=== PATIENT | male | born 1975 | race Caucasian/White ===

== ENCOUNTER 2022-07-21 13:45 | Emergency (ER) | payer BC ==
[~2022-07-21] VITALS: Ht 170.2 cm; Wt 73.9 kg
[2022-07-21 13:56] VITALS: BP 112/77
[2022-07-21] MEDS ORDERED: MECLIZINE 25 MG TAB PO ONE (14:30)
[2022-07-21] MEDS ORDERED: MECL-303 PO ×2 (15:04→15:29)
[2022-07-21] MEDS ORDERED: MECLIZINE 25 MG TAB ONE ×2 (15:51→15:52)
[2022-07-21 15:55] VITALS: BP 112/77
--- NOTE | 2022-07-21 15:55 | NUR ---
Patient discharged with v/s stable. Written and verbal after care instructions given and explained. Patient alert, oriented and verbalized understanding of instructions. Ambulatory with FRIEND to car. All questions addressed prior to discharge. ID band removed. Patient advised to follow up with PMD. Rx of ANTIVERT (SENT) given. Patient educated on indication of medication including possible reaction and side effects. Opportunity to ask questions provided and answered.
== END 2022-07-21 15:55 | disposition home or self-care (01) ==
LOC: MED 13:45
DX: H81.12 Benign paroxysmal vertigo, left ear (principal); Z79.899 Other long term (current) drug therapy
CPT/HCPCS: 99282; J8597